=== PATIENT | male | born 1960 | race African-American/Black ===

== ENCOUNTER 2017-03-21 11:07 | Emergency (ER) | payer MEDICARE, OTHER ==
--- NOTE | 2017-03-21 13:23 | RAD ---
TWO VIEWS OF THE CHEST: COMPARISON: 11/07/09. HISTORY: Chest pain, arm and neck pain since . FINDINGS: Two views of the chest show normal sized cardiomediastinal silhouette. There is no evidence of conso lidation, mass, or pleural effusion. The bones are unremarkable. IMPRESSION: No evidence of acute cardiopulmonary disease. POS: [facility]
--- NOTE | 2017-03-21 13:48 | RAD ---
THREE VIEWS OF CERVICAL SPINE: COMPARISON: None. HISTORY: Arm and neck pain since . FINDINGS: Three views of the cervical spine show normal height and alignment of the vertebral bodies without f racture or subluxation. The C5-6 intervertebral disk is mildly narrowed with small surrounding oste ophytes. No prevertebral soft tissue swelling is seen. IMPRESSION: Mild degenerative change at C5-6 without acute osseous abnormality. POS: [facility]
== END 2017-03-21 13:47 | disposition home or self-care (01) ==
LOC: ERS 11:07
DX: M54.6 Pain in thoracic spine (principal); F31.9 Bipolar disorder, unspecified; F43.10 Post-traumatic stress disorder, unspecified
CPT/HCPCS: 71020; 72040; 93005

== ENCOUNTER 2017-07-31 22:47 | Emergency (ER) | payer MEDICARE ==
[2017-07-31] MEDS ORDERED: Ketorolac Tromethamine 30 MG/ML VIAL ONE (23:03)
== END 2017-07-31 23:52 | disposition home or self-care (01) ==
LOC: ERS 22:47
DX: M25.531 Pain in right wrist (principal); M25.522 Pain in left elbow; M79.671 Pain in right foot; I10 Essential (primary) hypertension; E78.5 Hyperlipidemia, unspecified; F31.9 Bipolar disorder, unspecified; F43.10 Post-traumatic stress disorder, unspecified; Z79.899 Other long term (current) drug therapy
CPT/HCPCS: 96372; J1885

== ENCOUNTER 2017-12-22 12:19 | Emergency (ER) | payer MEDICARE, SELFPAY ==
[2017-12-22] MEDS ORDERED: hydrOXYzine 25 MG TAB ONE (13:01)
[2017-12-22] MEDS ORDERED: Dexamethasone 4 MG TAB ONE (13:05)
== END 2017-12-22 13:34 | disposition home or self-care (01) ==
LOC: ERS 12:19
DX: T63.461A Toxic effect of venom of wasps, accidental (unintentional), initial encounter (principal); F31.9 Bipolar disorder, unspecified; E78.00 Pure hypercholesterolemia, unspecified; F43.10 Post-traumatic stress disorder, unspecified; I10 Essential (primary) hypertension
CPT/HCPCS: 99282; J8540

== ENCOUNTER 2018-01-26 12:51 | Emergency (ER) | payer OTHER, MEDICARE ==
[2018-01-26] MEDS ORDERED: Adacel (T-DAP) 0.5 ML VIAL ONE (13:29)
--- NOTE | 2018-01-26 13:52 | RAD ---
LEFT KNEE RADIOGRAPHS FOUR VIEWS: 01/26/2018 PROVIDED CLINICAL HISTORY: Left knee pain status post injury. FINDINGS: No evidence for fracture or other acute osseous abnormality. If there is persistent clinical concern , conservative management and follow-up imaging advised. IMPRESSION: As above. POS: [facility]
--- NOTE | 2018-01-26 13:55 | RAD ---
FRONTAL VIEW CHEST: INDICATIONS: Post traumatic pain. COMPARISON: 11/07/2009 FINDINGS: The cardiomediastinal silhouette is accentuated by the portable technique. There is persistent, mild elevation of the right hemidiaphragm. There is no evidence of consolidation, effusion, or discrete pneumothorax. The osseous structures are grossly stable. IMPRESSION: No focal consolidation. POS: [facility]
== END 2018-01-26 13:56 | disposition home or self-care (01) ==
LOC: ERS 12:51
DX: S20.219A Contusion of unspecified front wall of thorax, initial encounter (principal); S80.02XA Contusion of left knee, initial encounter; I10 Essential (primary) hypertension; E78.00 Pure hypercholesterolemia, unspecified; F43.10 Post-traumatic stress disorder, unspecified; F31.9 Bipolar disorder, unspecified; Z79.899 Other long term (current) drug therapy; V43.93XA Unspecified car occupant injured in collision with pick-up truck in traffic accident, initial encounter
CPT/HCPCS: 71045; 90471; 90715

== ENCOUNTER 2018-09-05 15:20 | Emergency (ER) | payer MEDICARE ==
[2018-09-05 16:35] LABS: #Basophils 0.1 thou/uL (0.0-0.2); #Eosinphils 0.1 thou/uL (0.0-0.7); #Lymphocytes 2.4 thou/uL (1.20-3.40); #Neutrophils 8.2 thou/uL (1.40-6.50); %Basophils 0.6 % (0.0-1.0); %Eosinophils 1.2 % (0.0-10.0); %Lymphocytes 20.2 % (21.0-51.0); %Monocytes 8.5 % (0.0-10.0); %Neutrophils 69.5 % (42.0-75.0); Hemoglobin 14.9 g/dL (14.0-18.0); Mean Corpuscular HGB CONC 31.9 g/dL (32.0-36.0); Mean Corpuscular Hemoglobin 28.1 pg (27.0-31.0); Mean Corpuscular Volume 88.1 fL (78.0-98.0); Mean Platelet Volume 7.8 fL (7.4-10.4); Platelet Count 209 thou/uL (130-400); RBC Distribution Width 12.3 % (11.5-14.5); White Blood Cell (WBC) Count 11.8 thou/uL (4.8-10.8)
[2018-09-05 16:58] LABS: ALT (SGPT) 14 U/L (8-55); AST (SGOT) 15 U/L (5-34); Albumin 4.2 g/dL (3.5-5.0); Alkaline Phosphatase 65 U/L (40-150); Anion Gap 11 mmol/L (10-20); BUN (Urea Nitrogen) 20 mg/dL (8.4-25.7); Bilirubin, Total 0.8 mg/dL (0.2-1.2); Calc. Creatinine Clearance 0 mL/min (70-130); Calcium 9.8 mg/dL (7.8-10.44); Carbon Dioxide 28 mmol/L (22-29); Chloride 104 mmol/L (98-107); Estimated GFR-MDRD 42; Globulin 3.3 g/dL (2.4-3.5); Glucose 99 mg/dL (70-105); Potassium 3.9 mmol/L (3.5-5.1); Protein, Total 7.5 g/dL (6.0-8.3); Sodium 139 mmol/L (136-145)
== END 2018-09-05 18:30 | disposition home or self-care (01) ==
LOC: ERS 15:20
DX: L03.311 Cellulitis of abdominal wall (principal); E78.5 Hyperlipidemia, unspecified; F31.9 Bipolar disorder, unspecified; F43.10 Post-traumatic stress disorder, unspecified; I10 Essential (primary) hypertension
CPT/HCPCS: 36415; 80053; 85025; 99283

== ENCOUNTER 2020-10-07 12:23 | Outpatient (CLI) | payer MEDICARE | END 2020-10-07 12:24 | disposition home or self-care (01) | LOC: BICULT 12:23 | PROVIDERS: ATTEND Internal Medicine Nephrology | DX: N18.30 Chronic kidney disease, stage 3 unspecified (principal) | CPT/HCPCS: 76770 ==

== ENCOUNTER 2021-11-14 19:08 | Emergency (ER) | payer MEDICARE | END 2021-11-14 22:58 | disposition home or self-care (01) | LOC: ERS 19:08 | DX: L25.9 Unspecified contact dermatitis, unspecified cause (principal) | CPT/HCPCS: 99282 ==

== ENCOUNTER 2022-10-04 10:34 | Emergency (ER) | payer MEDICARE, OTHER | END 2022-10-04 11:35 | disposition home or self-care (01) | LOC: ERS 10:34 | DX: M10.9 Gout, unspecified (principal); I12.9 Hypertensive chronic kidney disease with stage 1 through stage 4 chronic kidney disease, or unspecified chronic kidney disease; N18.30 Chronic kidney disease, stage 3 unspecified ==

== ENCOUNTER 2023-12-30 11:57 | Inpatient (IN) | payer OTHER ==
[2023-12-30 13:01] LABS: #Basophils 0.04 10x3/uL (0.0-0.2); %Basophils 0.6 % (0.0-1.0); %Eosinophils 7.5 % (0.0-10.0); %Monocytes 7.7 % (0.0-10.0); Hematocrit 34.1 % (42.0-52.0); Hemoglobin 11.1 g/dL (14.0-18.0); Mean Corpuscular HGB CONC 32.6 g/dL (32.0-36.0); Mean Corpuscular Hemoglobin 28.8 pg (27.0-31.0); Mean Corpuscular Volume 88.6 fL (78.0-98.0); Mean Platelet Volume 10.4 fL (7.4-10.4); Platelet Count 230 10x3/uL (130-400); RBC Distribution Width 13.4 % (11.5-14.5); Red Blood Cell (RBC) Count 3.85 mill/uL (4.70-6.10)
[2023-12-30 13:31] LABS: ALT (SGPT) 10 U/L (8-55); AST (SGOT) 13 U/L (5-34); Albumin 3.1 g/dL (3.4-4.8); Alkaline Phosphatase 43 U/L (40-110); Anion Gap 21 mmol/L (10-20); BUN (Urea Nitrogen) 82 mg/dL (8.4-25.7); Bilirubin, Total 0.5 mg/dL (0.2-1.2); Calc. Creatinine Clearance 0 mL/min (70-130); Calcium 8.3 mg/dL (7.8-10.44); Carbon Dioxide 17 mmol/L (23-31); Chloride 109 mmol/L (98-107); Estimated GFR 3; Glucose 89 mg/dL (80-115); Potassium 4.4 mmol/L (3.5-5.1); Protein, Total 7.1 g/dL (5.8-8.1); Sodium 143 mmol/L (136-145)
[2023-12-30 15:02] LABS: Troponin I Less than 0.010 ng/mL (< 0.028)
[2023-12-30] MEDS ORDERED: Ondansetron ODT 4 MG TAB PO PRN (17:19)
[2023-12-30] MEDS: Sodium Bicarbonate Tab 325 MG TAB PO SCH (20:23)
[2023-12-30] MEDS: hydrALAZINE 10 MG TAB PO SCH (20:23)
[2023-12-30 21:19] VITALS: BMI 28.9
[2023-12-31 07:11] LABS: #Basophils 0.04 10x3/uL (0.0-0.2); %Basophils 0.6 % (0.0-1.0); %Eosinophils 8.8 % (0.0-10.0); %Neutrophils 51.4 % (42.0-75.0); Hematocrit 33.6 % (42.0-52.0); Hemoglobin 11.1 g/dL (14.0-18.0); Mean Corpuscular Hemoglobin 29.2 pg (27.0-31.0); Mean Corpuscular Volume 88.4 fL (78.0-98.0); Mean Platelet Volume 10.4 fL (7.4-10.4); Platelet Count 230 10x3/uL (130-400); RBC Distribution Width 13.4 % (11.5-14.5)
[2023-12-31 07:53] LABS: ALT (SGPT) 9 U/L (8-55); AST (SGOT) 11 U/L (5-34); Albumin 2.8 g/dL (3.4-4.8); Alkaline Phosphatase 43 U/L (40-110); Anion Gap 21 mmol/L (10-20); BUN (Urea Nitrogen) 86 mg/dL (8.4-25.7); Bilirubin, Total 0.4 mg/dL (0.2-1.2); Calc. Creatinine Clearance 6 mL/min (70-130); Calcium 7.9 mg/dL (7.8-10.44); Carbon Dioxide 16 mmol/L (23-31); Chloride 107 mmol/L (98-107); Estimated GFR 3; Globulin 3.7 g/dL (2.4-3.5); Glucose 86 mg/dL (80-115); Potassium 4.3 mmol/L (3.5-5.1); Protein, Total 6.5 g/dL (5.8-8.1); Sodium 140 mmol/L (136-145)
[2023-12-31] MEDS: Atorvastatin Calcium 40 MG TAB PO SCH (08:23)
[2023-12-31] MEDS: Amlodipine 10 MG TAB PO SCH (08:23)
[2023-12-31] MEDS: Aspirin 81 mg Enteric Coated Tablet PO SCH (08:25)
[2023-12-31] MEDS: Tuberculin PPD 0.1 ML SYRINGE (10 TEST VIAL) I-DERMAL SCH (14:24)
[2024-01-01] MEDS ORDERED: EPINEPHrine 1 MG/ML VIAL ONE (07:17)
[2024-01-01] MEDS ORDERED: Heparin 10,000 UNITS/ 10 ML VIAL ONE ×2 (07:17→14:30)
[2024-01-01] MEDS ORDERED: Lidocaine 1% PF 5 ML VIAL ONE ×2 (07:17→10:24)
[2024-01-01] MEDS ORDERED: Bupivacaine PF 0.5% 30 ML VIAL ONE (07:17)
[2024-01-01 07:44] LABS: #Basophils 0.04 10x3/uL (0.0-0.2); %Basophils 0.6 % (0.0-1.0); %Eosinophils 7.1 % (0.0-10.0); Hematocrit 32.6 % (42.0-52.0); Hemoglobin 10.9 g/dL (14.0-18.0); Mean Corpuscular HGB CONC 33.4 g/dL (32.0-36.0); Mean Corpuscular Hemoglobin 29.1 pg (27.0-31.0); Mean Corpuscular Volume 86.9 fL (78.0-98.0); Mean Platelet Volume 10.6 fL (7.4-10.4); Platelet Count 234 10x3/uL (130-400); RBC Distribution Width 13.2 % (11.5-14.5); Red Blood Cell (RBC) Count 3.75 mill/uL (4.70-6.10)
[2024-01-01 08:09] LABS: ALT (SGPT) 8 U/L (8-55); AST (SGOT) 9 U/L (5-34); Albumin 2.8 g/dL (3.4-4.8); Alkaline Phosphatase 42 U/L (40-110); Anion Gap 19 mmol/L (10-20); BUN (Urea Nitrogen) 92 mg/dL (8.4-25.7); Bilirubin, Total 0.4 mg/dL (0.2-1.2); Calc. Creatinine Clearance 6 mL/min (70-130); Calcium 7.7 mg/dL (7.8-10.44); Carbon Dioxide 19 mmol/L (23-31); Chloride 106 mmol/L (98-107); Estimated GFR 3; Globulin 3.4 g/dL (2.4-3.5); Glucose 79 mg/dL (80-115); Potassium 4.3 mmol/L (3.5-5.1); Protein, Total 6.2 g/dL (5.8-8.1); Sodium 140 mmol/L (136-145)
[2024-01-01] MEDS ORDERED: PROPOFOL 20 ML ONE (10:24)
[2024-01-01] MEDS ORDERED: ePHEDrine Sulfate 50 MG/10 ML VIAL ONE (10:56)
[2024-01-01] MEDS ORDERED: PHENYLEPHRINE-NS 100 MCG/ML 10 ML SYRINGE ONE (11:10)
[2024-01-01 17:16] LABS: HBSAB Concentration Less than 8.00 mIU/mL; HBsAg Index 0.27 S/CO (0-0.99); Hep B Core Total Ab NONREACTIVE (NonReactive); Hep B Core Total Index 0.13 S/CO (0-0.79); Hep B Surf AB NONREACTIVE (NonReactive); Hep B Surf Ag NONREACTIVE S/CO (NonReactive); Hep C IgG Ab NONREACTIVE S/CO (NonReactive); Hep C Index 0.08 S/CO (0-0.79)
[2024-01-02] MEDS: Acetaminophen 500 MG TAB PO SCH (00:45)
[2024-01-02 07:15] LABS: #Basophils 0.03 10x3/uL (0.0-0.2); %Basophils 0.5 % (0.0-1.0); %Lymphocytes 28.3 % (21.0-51.0); %Monocytes 9.4 % (0.0-10.0); %Neutrophils 55.6 % (42.0-75.0); Hematocrit 31.1 % (42.0-52.0); Hemoglobin 10.3 g/dL (14.0-18.0); Mean Corpuscular HGB CONC 33.1 g/dL (32.0-36.0); Mean Corpuscular Hemoglobin 28.9 pg (27.0-31.0); Mean Corpuscular Volume 87.4 fL (78.0-98.0); Mean Platelet Volume 10.5 fL (7.4-10.4); Platelet Count 216 10x3/uL (130-400); RBC Distribution Width 13.2 % (11.5-14.5); Red Blood Cell (RBC) Count 3.56 mill/uL (4.70-6.10)
[2024-01-02 07:51] LABS: ALT (SGPT) 8 U/L (8-55); AST (SGOT) 10 U/L (5-34); Albumin 2.8 g/dL (3.4-4.8); Alkaline Phosphatase 41 U/L (40-110); Anion Gap 17 mmol/L (10-20); BUN (Urea Nitrogen) 66 mg/dL (8.4-25.7); Bilirubin, Total 0.4 mg/dL (0.2-1.2); Calc. Creatinine Clearance 8 mL/min (70-130); Carbon Dioxide 22 mmol/L (23-31); Chloride 103 mmol/L (98-107); Estimated GFR 4; Globulin 3.5 g/dL (2.4-3.5); Glucose 86 mg/dL (80-115); Potassium 3.9 mmol/L (3.5-5.1); Protein, Total 6.3 g/dL (5.8-8.1); Sodium 138 mmol/L (136-145)
[2024-01-02] MEDS ORDERED: Heparin 10,000 UNITS/ 10 ML VIAL ONE (08:39)
[2024-01-03] MEDS: READ PPD TEST SITE PO SCH (08:17)
[2024-01-03 08:24] VITALS: TEMP 98.1
[2024-01-03] MEDS ORDERED: READ PPD TEST SITE PO SCH (09:00)
[2024-01-03 11:16] LABS: #Basophils 0.04 10x3/uL (0.0-0.2); %Basophils 0.6 % (0.0-1.0); %Eosinophils 7.2 % (0.0-10.0); %Lymphocytes 28.1 % (21.0-51.0); %Neutrophils 52.8 % (42.0-75.0); Hematocrit 34.2 % (42.0-52.0); Hemoglobin 11.2 g/dL (14.0-18.0); Mean Corpuscular HGB CONC 32.7 g/dL (32.0-36.0); Mean Corpuscular Hemoglobin 28.6 pg (27.0-31.0); Mean Corpuscular Volume 87.2 fL (78.0-98.0); Mean Platelet Volume 10.8 fL (7.4-10.4); Platelet Count 212 10x3/uL (130-400); RBC Distribution Width 13.3 % (11.5-14.5); Red Blood Cell (RBC) Count 3.92 mill/uL (4.70-6.10)
[2024-01-03 11:33] LABS: ALT (SGPT) 8 U/L (8-55); AST (SGOT) 12 U/L (5-34); Albumin 2.9 g/dL (3.4-4.8); Alkaline Phosphatase 42 U/L (40-110); Anion Gap 19 mmol/L (10-20); BUN (Urea Nitrogen) 54 mg/dL (8.4-25.7); Bilirubin, Total 0.5 mg/dL (0.2-1.2); Calc. Creatinine Clearance 9 mL/min (70-130); Calcium 8.6 mg/dL (7.8-10.44); Carbon Dioxide 24 mmol/L (23-31); Chloride 102 mmol/L (98-107); Estimated GFR 5; Globulin 3.7 g/dL (2.4-3.5); Glucose 102 mg/dL (80-115); Potassium 4.4 mmol/L (3.5-5.1); Protein, Total 6.6 g/dL (5.8-8.1); Sodium 141 mmol/L (136-145)
[2024-01-03 12:23] VITALS: BP 125/85
== END 2024-01-03 14:48 | disposition home or self-care (01) | DRG 674 ==
LOC: ERS 11:57 → T4-A 17:19 → OBSVTOIN 01-01 18:49
PROVIDERS: ADMIT Student in an Organized Health Care Education/Training Program; ATTEND Student in an Organized Health Care Education/Training Program
PROC: 0JH63XZ Insertion of Tunneled Vascular Access Device into Chest Subcutaneous Tissue and Fascia, Percutaneous Approach (ICD-10-PCS; principal; 2024-01-01)
PROC: 02HV33Z Insertion of Infusion Device into Superior Vena Cava, Percutaneous Approach (ICD-10-PCS; 2024-01-01)
PROC: B5181ZA Fluoroscopy of Superior Vena Cava using Low Osmolar Contrast, Guidance (ICD-10-PCS; 2024-01-01)
PROC: 3E033XZ Introduction of Vasopressor into Peripheral Vein, Percutaneous Approach (ICD-10-PCS; 2024-01-01)
PROC: 5A1D70Z Performance of Urinary Filtration, Intermittent, Less than 6 Hours Per Day (ICD-10-PCS; 2024-01-01)
DX: N17.9 Acute kidney failure, unspecified (principal); I12.0 Hypertensive chronic kidney disease with stage 5 chronic kidney disease or end stage renal disease; N18.6 End stage renal disease; F31.9 Bipolar disorder, unspecified; D63.1 Anemia in chronic kidney disease; E78.00 Pure hypercholesterolemia, unspecified; F43.10 Post-traumatic stress disorder, unspecified; Z88.8 Allergy status to other drugs, medicaments and biological substances; Z79.899 Other long term (current) drug therapy; Z90.49 Acquired absence of other specified parts of digestive tract
CPT/HCPCS: 36415; 71045; 80053; 83690; 84484; 85025; 86580; 86704; 86706; 86803; 87340; 93005; 94760; C1752; G0378; J0171; J0665; J1644; J2704

== ENCOUNTER 2024-06-19 18:54 | Emergency (ER) | payer MEDICARE, OTHER ==
[2024-06-19 19:50] LABS: CRP,High Sensitivity (Inhouse) 2.04 mg/dL (< or = 0.5)
[2024-06-19 19:51] LABS: ALT (SGPT) 10 U/L (8-55); AST (SGOT) 12 U/L (5-34); Albumin 3.3 g/dL (3.4-4.8); Alkaline Phosphatase 45 U/L (40-110); Anion Gap 18 mmol/L (10-20); BUN (Urea Nitrogen) 52 mg/dL (8.4-25.7); Bilirubin, Total 0.4 mg/dL (0.2-1.2); Calc. Creatinine Clearance 0 mL/min (70-130); Calcium 9.1 mg/dL (7.8-10.44); Carbon Dioxide 18 mmol/L (23-31); Chloride 105 mmol/L (98-107); Estimated GFR 5; Globulin 3.4 g/dL (2.4-3.5); Glucose 89 mg/dL (80-115); Lipase 23 U/L (8-78); Magnesium 2.2 mg/dL (1.6-2.6); Potassium 4.8 mmol/L (3.5-5.1); Protein, Total 6.7 g/dL (5.8-8.1); Sodium 136 mmol/L (136-145)
[2024-06-19] MEDS ORDERED: Vancomycin (BATCH) 2 GM in Premix 1 BAG IVPB SCH (20:15)
[2024-06-19] MEDS ORDERED: CefTAZidime\\FORTAZ 1 GM in Sodium Chloride 0.9% 100 ML IVPB SCH (20:15)
[2024-06-19 20:21] LABS: #Basophils 0.05 10x3/uL (0.0-0.2); %Basophils 0.7 % (0.0-1.0); %Eosinophils 6.4 % (0.0-10.0); %Lymphocytes 17.7 % (21.0-51.0); %Monocytes 13.9 % (0.0-10.0); %Neutrophils 60.6 % (42.0-75.0); Hematocrit 39.8 % (42.0-52.0); Hemoglobin 13.1 g/dL (14.0-18.0); Mean Corpuscular HGB CONC 32.9 g/dL (32.0-36.0); Mean Corpuscular Hemoglobin 28.5 pg (27.0-31.0); Mean Corpuscular Volume 86.7 fL (78.0-98.0); Mean Platelet Volume 9.7 fL (7.4-10.4); Platelet Count 180 10x3/uL (130-400); RBC Distribution Width 14.6 % (11.5-14.5); Red Blood Cell (RBC) Count 4.59 mill/uL (4.70-6.10)
[2024-06-19 21:02] LABS: Prothrombin Time 12.7 sec (12.0-14.7)
[2024-06-19 21:03] LABS: PTT 31.3 sec (22.9-36.1)
[2024-06-19 21:39] LABS: BF Color Yellow; Body Fluid Source Dialysate Fluid; Clarity Hazy (Clear); Tube # 1
[2024-06-19 21:40] LABS: BF RBC Count - Manual 1 /cu.mm
[2024-06-19 21:49] LABS: Bacteria/HPF None Seen HPF (None Seen); Bilirubin Negative (Negative); Blood, Urine 1+ (Negative); CAUTI Indications for Culture Fever or rigors; Clarity Clear (Clear); Glucose, Urine (Dipstick) 100 mg/dL (Negative); Ketone, Urine Negative (Negative); Leukocyte Negative Leu/uL (Negative); Nitrite Negative (Negative); Protein, Urine (Dipstick) 300 mg/dL (Neg-Trace); RBC/HPF None Seen HPF (0-3); Specific Gravity, Urine 1.009 (1.002-1.036); Squamous Epithelial 0-3 HPF (0-3); Urobilinogen Normal mg/dL (Less than 2); WBC/HPF 0-3 HPF (0-3); pH, Urine 7.5 (5.0-9.0)
[2024-06-19 21:58] LABS: Urine Culture Reflex No No
[2024-06-19 23:07] LABS: BF WBC/Nonhematics Ct.-Manual 6 /cu.mm
== END 2024-06-19 22:58 | disposition home or self-care (01) ==
LOC: ERS 18:54
DX: R50.9 Fever, unspecified (principal); R05.9 Cough, unspecified; I12.0 Hypertensive chronic kidney disease with stage 5 chronic kidney disease or end stage renal disease; N18.6 End stage renal disease; E78.00 Pure hypercholesterolemia, unspecified; Z49.02 Encounter for fitting and adjustment of peritoneal dialysis catheter
CPT/HCPCS: 71045; 80053; 81001; 83605; 83690; 83735; 84145; 85025; 85610; 85730; 86141; 87040; 87428; 89051; 96374; 96375; 99283; J0713; J3370; 36415